=== PATIENT | female | born 1985 | race Caucasian/White ===

== ENCOUNTER 2018-07-19 12:35 | Inpatient (IN) | payer OTHER ==
[2018-07-19 14:16] LABS: Hematocrit 35 % (35-47); Hemoglobin 11.9 g/dL (12.0-16.0); Mean Corpuscular HGB Conc 34 g/dL (31-36); Mean Corpuscular Hemoglobin 31 pg (27-31); Mean Corpuscular Volume 92 fL (80-97); Mean Platelet Volume 8.6 fL (7.4-10.4); Platelet Count 170 10^3/uL (150-450); Red Blood Count 3.86 10^6 /uL (3.70-4.87); Red Cell Distribution Width 14 % (10.5-15); White Blood Count 14.1 10^3/uL (3.5-10.8)
[2018-07-19] MEDS ORDERED: Buffered Lidocaine 1% SYRIN* 1 ML/SYRINGE INTRADERM ONE (16:48)
[2018-07-19] MEDS ORDERED: Lactated Ringers 1000 ML Bag* 1,000 ML IV ONE ×2 (16:48→20:24)
--- NOTE | 2018-07-19 16:56 | HP ---
General Information - Reason for Visit Pt reports SROM to clear fluid around 1100 this morning. Has been having mild ctx since last night. 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 Pertinent Past Medical History: See Records - depression/ anxiety Pertinent Past Surgical History: See Records - D&E 07/2015 Pertinent Family History: Non-Contributory - Antepartal Records Antepartal Records: Reviewed, Uncomplicated Review of Systems Constitutional: Uncomfortable CV Complaint: No Respiratory: Shortness of Breath: No Gastrointestinal: No Nausea/Vomiting, Normal Bowel Movement Genitourinary: Leaking Fluid, No Dysuria, No Bleeding Musculoskeletal: No Epigastric Pain, Contractions Neurological: No Headache, No Visual Changes Movement: Normal Exam Allergies/Adverse Reactions: Allergies No Known Allergies Allergy (Verified 07/19/18 13:23) T-97.8, P-70, R-18, BP- 120/66, O2-98% Lab Values - Entire Visit: Laboratory Tests 07/19/18 07/19/18 07/19/18 13:00 14:02 14:02 WBC 14.1 H RBC 3.86 Hgb 11.9 L Hct 35 MCV 92 MCH 31 MCHC 34 RDW 14 Plt Count 170 MPV 8.6 Vag Amniotic Fld Detect Positive Blood Type A Positive Antibody Screen Negative - Measurements Height: 5 ft 2 in Weight: 72.575 kg Weight in lbs: 160.770846 Body Mass Index (BMI): 29.2 Pre- Weight: 55.338 kg Weight Gained This : 38 lbs and 0 ozs - Exam Breast: Breast Exam Deferred CVA: No CVA Tenderness Extremities: Edema - mild nonpitting pedal edema Heart: Normal Rhythm/Heart Sounds HEENT: No Significant Findings Lungs: Clear Bilaterally Rectal: Rectal Exam Deferred Reflexes: DTR 2+ Thyroid: No Thyromegaly - Abdominal Exam Abdomen Exam: Non-Tender, Fundal Height Consistent with Dates - Ultrasound/Biophysical Profile Ultrasound Status: Not Done Targeted Exam Findings See L&D Outpatient Visit Provider Note for Findings: N/A Estimated Weight: 7.5# Cervical Exam: 3cm Effacement: 100% Station: 0 Presenting Part: Vertex Membrane Status: SROM Amniotic Fluid Evaluation: Positive ROM Plus Bleeding/Discharge: Bloody Show EFM Findings - External Monitor Findings Baseline Heart Rate: 130 External Monitor Findings: Accelerations Present, No Pattern of Variable or Late Decelerations, Variability Moderate, Baseline Stable Contractions: Irregular, Mild, Moderate, 45-90 Seconds Contraction Frequency: 3-6 minutes Assessment/Plan - Assessment 32 year old at 39 5/7 weeks gestation with ruptured membranes in early labor, no evidence of acidemia or chorioamnionitis - Plan Plan: Admit - Anticipate Vaginal Delivery Plan Comment: Discussed options with pt. Counseled that prolonged rupture of membranes can lead to infection. Pt currently alyssa and is 3cm but is not yet in active labor. Offered option of Pitocin augmentation to reduce time of ruptured membranes prior to delivery. At this time, pt prefers to avoid augmentation. Pt with strong preference for epidural in labor, so will start IV. Pt counseled that she can get epidural at any point when she feels ready. Will check back in this evening if still no active labor, reevaluate plan. - Date/Time of Admission Date of Admission: 07/19/18 Time of Admission: 13:55
[2018-07-19] MEDS ORDERED: Lactated Ringers 1000 ML Bag* 1,000 ML IV SCH ×2 (17:00→21:00)
[2018-07-19] MEDS ORDERED: Sodium Citrate/Citric Acid* 15 ML UDC PO PRN (20:24)
[2018-07-19] MEDS ORDERED: Famotidine TAB* 20 MG PO PRN (20:24)
[2018-07-19] MEDS ORDERED: OBEPIDURAL* 250 ML EPIDURAL ONE (20:26)
--- NOTE | 2018-07-19 20:33 | PN ---
Progress Note - Progress Note Date of Service: 07/19/18 SOAP: Subjective: Pt increasingly uncomfortable with ctx. Trying to decide if she is ready for epidural. Dr. Johnson was getting ready to go home, so pt decided she would like to get epidural now. Objective: Cervix: 4 cm/ 100%/ 0 station FHR: baseline 120/ moderate variability/ + accels, no decels UCs: Q 5 minutes Fluid clear Assessment: Pt appears to be getting into more active labor. No evidence of acidemia Plan: Epidural for pain relief. Consider Pitocin augmentation if ctx not adequate.
[2018-07-19] MEDS ORDERED: OBEPIDURAL* 250 ML EPIDURAL SCH (21:00)
[2018-07-19] MEDS: Sertraline* 50 MG TAB PO SCH (22:09)
--- NOTE | 2018-07-19 22:26 | PN ---
Progress Note - Progress Note Date of Service: 07/19/18 SOAP: Subjective: Pt comfortable with epidural. Mother and sister tearful per nurse. Objective: FHR: baseline 140, + accels, no decels, moderate variability UCs: 3-6 minutes BP- 116/58 Fluid clear Zheng draining clear pale yellow urine Assessment: Ctx spacing out. Pt comfortable with epidural. No evidence of chorioamnionitis or acidemia. Plan: Recommended Pitocin augmentation to pt. Discussed risks and benefits. Counseled that prolonged rupture of membranes can lead to infection and that Pitocin can reduce the duration of time prior to delivery. Pt declines Pitocin augmentation at this time, states she just wants to rest. May be willing to consider later, in an hour or so.
[2018-07-19] MEDS ORDERED: Oxytocin in LR* 20 UNITS/1,000 ML BAG IVPB SCH (23:45)
[2018-07-19] MEDS ORDERED: Oxytocin in LR* 20 UNITS/1,000 ML BAG IVPB ONE (23:49)
--- NOTE | 2018-07-20 00:03 | PN ---
Progress Note - Progress Note Date of Service: 07/19/18 SOAP: Subjective: Pt remains comfortable with epidural. Mother and sister at bedside, all resting. Objective: FHR: Baseline 130, + accels, no decels, moderate variability UCs: 3-6 minutes Cervical exam deferred Assessment: Pt comfortable, no evidence of acidemia. Ctx somewhat spaced out. Plan: Pt agrees to Pitocin augmentation, will initiate low dose Pitocin. Encourage rest. Will recheck cervix in a few hours or as needed.
--- NOTE | 2018-07-20 03:43 | PN ---
Progress Note - Progress Note Date of Service: 07/20/18 Note: Pt appears to be sleeping in bed. FHR Category I. UCs every 1-4 minutes. Plan to recheck when she awakens or PRN.
--- NOTE | 2018-07-20 08:06 | PN ---
Progress Note - Progress Note Date of Service: 07/20/18 Note: Comfortable, now feeling pressure Cervix: 9cm/100%, vtx 0 Will await full dilation
--- NOTE | 2018-07-20 09:25 | PN ---
Progress Note - Progress Note Date of Service: 07/20/18 Note: Feeling more pressure cervix: 9cm. 100%, vtx +1 AROM 2nd layer Will await full dilation
--- NOTE | 2018-07-20 11:08 | PN ---
Progress Note - Progress Note Date of Service: 07/20/18 Note: Still comfortable. Leaking mec stained fluid. Cervix: ant lip, +1, does not reduce with pushing Will increase pitocin, continue to await full dilation
--- NOTE | 2018-07-20 13:55 | PN ---
Progress Note - Progress Note Date of Service: 07/20/18 Note: pushing started at 1300. FHTs stable Making progress, will continue pushing
[2018-07-20] MEDS ORDERED: Dibucaine 1% 28.35 GM TUBE ONE (16:12)
[2018-07-20] MEDS ORDERED: Witch Hazel PAD* JAR ONE (16:12)
[2018-07-20] MEDS: Phenylephrine 40 MCG/ML SYRINGE IV PUSH PRN ×2 (16:24→16:28)
[2018-07-20] MEDS ORDERED: Glycerin ADULT SUPP PR PRN (16:28)
[2018-07-20] MEDS ORDERED: Witch Hazel PAD* JAR TOPICAL PRN (16:28)
[2018-07-20] MEDS ORDERED: Phenylephrine 40 MCG/ML SYRINGE IV PUSH PRN (16:28)
--- NOTE | 2018-07-20 16:33 | PROCNOTE ---
[facility] OB: Delivery Note - Delivery A Date of : 07/20/18 Time of : 15:49 Sex: Female Score 1 Minute: 9 Score 5 Minutes: 9 Gestational Age in Weeks and Days at Delivery: 39 Weeks and 6 Days Delivery Method: Low Forceps Vaginal Labor: Spontaneous Amniotic Fluid: Meconium Estimated Blood Loss: 300 Anesthesia/Analgesia: CEI for Labor Delivered By: Santosh Hall Perineum Perineal Injury: 3rd Degree Extension Perineal Injury Comment: sulcus tear on the right side repaired. repair of 3rd degree with 2-0 Perineal Repair: By Delivering Practioner - Events Delivery Events of Note: Pitocin During Labor, Protracted/Long Labor - low forceps delivery left occiput posterior. moderate traction. pt comfortable with an epidural local bolus by dr mars . dr smith present.
[2018-07-20] MEDS ORDERED: Lactated Ringers 1000 ML Bag* 1,000 ML IV SCH (17:00)
[2018-07-20] MEDS ORDERED: Oxytocin in LR* 20 UNITS/1,000 ML BAG IVPB SCH (17:00)
[2018-07-20] MEDS ORDERED: Simethicone TAB* 80 MG TAB.CHEW PO SCH (17:30)
[2018-07-20] MEDS: Acetaminophen TAB* 325 MG PO PRN ×2 (18:12→22:01)
[2018-07-20] MEDS: Ibuprofen TAB* 600 MG PO PRN (18:13)
--- NOTE | 2018-07-20 20:29 | OP ---
OPERATIVE REPORT: DATE OF OPERATION: 07/20/18 DATE OF : 81 SURGEON: Santosh Hall MD. ANESTHESIA: Epidural. PRE-OP DIAGNOSIS: Arrest of descent, maternal exhaustion. POST-OP DIAGNOSES: Arrest of descent, maternal exhaustion, persistent occiput posterior and third-de gree laceration. OPERATIVE PROCEDURE: Low forceps delivery and repair of third-degree laceration. ESTIMATED BLOOD LOSS: 300 cc. COMPLICATIONS: Include third-degree laceration. FINDINGS: This is a 32-year-old 1, para 0, who progressed slowly to complete dilation. She pushed for over 2-1/2 hours with no descent in the last hour, and after the risks, benefits, alternat serina, indications were discussed with the patient, the patient opted for a forceps delivery. At the time of forceps, she had a viable female, Apgars 9 and 9. DESCRIPTION OF PROCEDURE: The patient identified, procedure identified as a low forceps delivery. T he patient was in the delivery room. Her epidural was bolused. She had been catheterized for 250 cc of urine. Baby was believed to be in the right occiput anterior position and first the posterior for ceps was placed on the maternal left and then on the right side with a good application and attention to the sutures being in the midline and moderate amount of traction was placed until spontaneous del laura of a baby in the occiput posterior position was delivered. Nuchal cord x1 was lopped off. The rest of the baby was delivered, and the cord was doubly clamped and cut and the was handed to the waiting information technology project manager. A section of the cord was obtained for pH if necessary. With the Apgars be ing good, the decision was made not to send this, and cord bloods were obtained. Placenta was deliver ed manually. The vagina was inspected. There was found to be a small sulcus tear on the right and a third-degree laceration. The laceration was repaired using 2-0 Vicryl in the external sphincter mus jesse and the sulcus tear was repaired using 3-0 Vicryl in a running and simple fashion. The rest of t he episiotomy was done in the usual fashion using 3-0 Vicryl. The rectum was inspected, found to be without suture and without any gaps or issues with holes. Good hemostasis was verified and the patien t and baby were doing well. [id number]/[facility] #: [id number]
[2018-07-20] MEDS: Docusate CAP* 100 MG PO SCH (22:02)
[2018-07-20] MEDS: Sertraline* 50 MG TAB PO SCH (22:02)
[2018-07-21] MEDS: Ibuprofen TAB* 600 MG PO PRN ×3 (04:34→18:22)
[2018-07-21] MEDS: Acetaminophen TAB* 325 MG PO PRN ×2 (04:34→18:22)
[2018-07-21 07:28] LABS: ABS Eosinophils 0.1 10^3/ul (0-0.6); ABS Lymphocytes 1.7 10^3/ul (1.0-4.8); ABS Monocytes 0.9 10^3/ul (0-0.8); ABS Neutrophils 13.7 10^3/ul (1.5-7.7); Eosinophil % 0.8 %; Hematocrit 27 % (35-47); Hemoglobin 9.2 g/dL (12.0-16.0); Mean Corpuscular HGB Conc 34 g/dL (31-36); Mean Corpuscular Hemoglobin 31 pg (27-31); Mean Corpuscular Volume 92 fL (80-97); Mean Platelet Volume 9.3 fL (7.4-10.4); Platelet Count 136 10^3/uL (150-450); Red Blood Count 2.96 10^6 /uL (3.70-4.87); Red Cell Distribution Width 15 % (10.5-15); White Blood Count 16.5 10^3/uL (3.5-10.8)
[2018-07-21] MEDS: Docusate CAP* 100 MG PO SCH ×3 (09:35→21:08)
[2018-07-21] MEDS: Ferrous Gluconate TAB* 324 MG TAB PO SCH ×2 (09:35→21:08)
[2018-07-21] MEDS: Dibucaine 1% 28.35 GM TUBE PR PRN (11:11)
[2018-07-21] MEDS: Sertraline* 50 MG TAB PO SCH (21:08)
[2018-07-22] MEDS: Ibuprofen TAB* 600 MG PO PRN ×2 (00:22→08:45)
[2018-07-22] MEDS: Dibucaine 1% 28.35 GM TUBE PR PRN (08:44)
[2018-07-22] MEDS: Ferrous Gluconate TAB* 324 MG TAB PO SCH (08:44)
[2018-07-22] MEDS: Docusate CAP* 100 MG PO SCH (08:44)
[2018-07-22 09:00] VITALS: BP 118/75
== END 2018-07-22 14:52 | disposition home or self-care (01) | DRG 768 ==
LOC: MCHOBOUT 12:35 → MCHOB 13:55
PROVIDERS: ADMIT Midwife; ATTEND Midwife
PROC: 10D07Z3 Extraction of Products of Conception, Low Forceps, Via Natural or Artificial Opening (ICD-10-PCS; principal; 2018-07-20)
PROC: 0DQR0ZZ Repair Anal Sphincter, Open Approach (ICD-10-PCS; 2018-07-20)
PROC: 10907ZC Drainage of Amniotic Fluid, Therapeutic from Products of Conception, Via Natural or Artificial Opening (ICD-10-PCS; 2018-07-20)
DX: O99.344 Other mental disorders complicating childbirth (principal); Z37.0 Single live birth; O70.20 Third degree perineal laceration during delivery, unspecified; F32.9 Major depressive disorder, single episode, unspecified; O77.0 Labor and delivery complicated by meconium in amniotic fluid; O69.81X0 Labor and delivery complicated by cord around neck, without compression, not applicable or unspecified; O32.4XX0 Maternal care for high head at term, not applicable or unspecified; F41.9 Anxiety disorder, unspecified; O90.81 Anemia of the puerperium; D64.9 Anemia, unspecified; Z3A.39 39 weeks gestation of pregnancy
CPT/HCPCS: 36415; 84112; 85025; 85027; 86850; 86900; 86901; A9270-GY

== ENCOUNTER 2019-03-26 09:49 | Emergency (ER) | payer SELFPAY ==
[2019-03-26 10:09] VITALS: BP 130/68
--- NOTE | 2019-03-26 10:12 | UC ---
Throat Pain/Nasal Yann HPI - HPI Summary HPI Summary: 33 yo female presents with LEFT eye complaint. 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 Has been itchy since that time. She does not wear contacts. Denies trauma or FB. Denies recent illness, sinus symptoms, sore throat, or vision changes. - History of Current Complaint Chief Complaint: UCEye Stated Complaint: EYE PROBLEM Hx Obtained From: Patient Hx Last Menstrual Period: 03/02/19 Onset/Duration: Sudden Onset Pain Intensity: 0 - Allergies/Home Medications Allergies/Adverse Reactions: Allergies Allergy/AdvReac Type Severity Reaction Status Date / Time No Known Allergies Allergy Verified 03/26/19 10:09 PMH/Surg Hx/FS Hx/Imm Hx Psychological History: Anxiety, Depression - Surgical History Surgical History: None - Family History Known Family History: Positive: None - Social History Occupation: Employed Full-time Lives: With Family Alcohol Use: None Substance Use Type: None Smoking Status (MU): Never Smoked Tobacco - Immunization History Most Recent Influenza Vaccination: 2018 Most Recent Pneumonia Vaccination: Unknown Review of Systems All Other Systems Reviewed And Are Negative: No Constitutional: Positive: Negative Skin: Positive: Negative Eyes: Positive: Drainage, Eye Redness ENT: Positive: Negative Respiratory: Positive: Negative Neurological: Positive: Negative Psychological: Positive: Negative Physical Exam - Summary Physical Exam Summary: GENERAL: WDWN. No pain distress. SKIN: No rashes, sores, lesions, or open wounds. HEENT: Head: AT/NC Eyes: EOM intact. PERRLA. LEFT EYE: Mild scleral injection. Conjunctiva with mild erythema and inflammation. Mild clear/yellow discharge. RIGHT EYE: Conjunctiva clear without inflammation or discharge. No FBs appreciated Nose: NTTP maxillary and frontal sinus. NECK: Supple. Nontender. No lymphadenopathy. CHEST: No accessory muscle use. Breathing comfortably and in no distress. CV: Pulses intact. Cap refill <2seconds NEURO: Alert. PSYCH: Age appropriate behavior. Triage Information Reviewed: Yes Vital Signs: Initial Vital Signs Temp 98.5 F 03/26/19 10:07 Pulse 80 03/26/19 10:07 Resp 16 03/26/19 10:07 BP 130/68 03/26/19 10:07 Pulse Ox 100 01/13/20 10:07 Vital Signs Reviewed: Yes Throat Pain/Nasal Course/Dx - Course Course Of Treatment: Conjunctivitis - Differential Dx/Diagnosis Provider Diagnosis: Conjunctivitis Discharge ED - Sign-Out/Discharge Documenting (check all that apply): Patient Departure All imaging exams completed and their final reports reviewed: No Studies - Discharge Plan Condition: Stable Disposition: HOME Prescriptions: Ofloxacin 0.3% (Eye Drop) [Ocuflox OPTH 0.3% (Eye Drop)] 1 drop LEFT EYE QID #1 btl Patient Education Materials: Conjunctivitis (ED) Referrals: No Primary Care Phys,NOPCP [Primary Care Provider] - Additional Instructions: If you develop a fever, shortness of breath, chest pain, new or worsening symptoms - please call your PCP or go to the ED immediately. - Billing Disposition and Condition Condition: STABLE Disposition: Home
== END 2019-03-26 10:25 | disposition home or self-care (01) ==
LOC: UCEAST 09:49
DX: H10.9 Unspecified conjunctivitis (principal)
CPT/HCPCS: 99212; G0463